=== PATIENT | female | born 1940 | race Caucasian/White ===

== ENCOUNTER → 2018-01-20 15:13 | Outpatient (CLI) | payer MEDICARE, SELFPAY ==
[2018-01-20 16:28] LABS: Erythrocyte Sedimentation Rate 65 MM/HR (0-20)
== END ==
PROVIDERS: PCP Family Medicine; Visit Provider Ophthalmology
DX: H53.8 Other visual disturbances (principal)
CPT/HCPCS: 36415; 85651; 86140

== ENCOUNTER 2021-02-07 08:53 | Outpatient (CLI) | payer MEDICARE, SELFPAY ==
[2021-02-07] VITALS (8 sets, daily range): BP systolic 143–184; BP diastolic 60–84; PULSE 62–68; RESP 9–17; TEMP 37.7; O2SAT 92–96
--- NOTE | 2021-02-07 08:54 | DI.RAD.S_ITS ---
PROCEDURE: PAIN C/T INTERLAMINAR INJECT INDICATIONS: SPONDYLOSIS COMPARISON: Outside Facility, RG, MRI C-SPINE W/O CONTRAST, 10/21/2020, 11:01. FINDINGS: Fluoroscopic spot filming was performed to verify placement of spinal needle at the left C6-C7 level as labeled on the films. Appropriate location of the needle tip was confirmed by injection of iodinated contrast. IMPRESSION: 1. Fluoroscopy provided for epidural injection at C6-C7. Dictated by: Govind Sherwood M.D. on 02/07/2021 at 13:48 Approved by: Govind Sherwood M.D. on 02/07/2021 at 13:51
[2021-02-07] MEDS: IOPAMIDOL 15 ML VIAL 3 ML INJ (10:25)
[2021-02-07] MEDS: BUPIVACAINE 0.25% (PF) VIAL 2 ML INJ (10:25)
[2021-02-07] MEDS: DEXAMETHASONE 10 MG/ML VIAL 30 MG INJ (10:25)
[2021-02-07] MEDS: fentaNYL 100 MCG/2 ML INJ 50 MCG IV (10:25)
[2021-02-07] MEDS: MIDAZOLAM 5 MG/5 ML VIAL IV (10:25)
--- NOTE | 2021-02-07 10:45 | P.PCN_ITS ---
Date/Time/Diagnoses Date of procedure: 02/07/21 Time of procedure: 10:45 Pre-procedure diagnosis: 1. CERVICAL STENOSIS, 2. CERVICAL HNP WITH UPPER EXTREMITY RADICULAR FEATURES Post-procedure diagnosis: same Procedure Notes Procedure: 1. FLUORSCOPICALLY GUIDED CONTRAST CONTROLLED INTERLAMINAR EPIDURAL STEROID INJECTION - C6/7 TL COURTNEY Indications: Nadine is referred by Dr. Mcbride for treatment of Cervical HNP with Upper Extremity Paresthesias. Physician: Julius Huggins Total Fluoroscopy time (seconds): 21 Total sedation minutes: 12 Complications: none Procedure in detail & Post-procedure care: FINDINGS Cervical Stenosis due to disc deterioration and nerve root irritation and nerve root irritation DESCRIPTION OF PROCEDURE Fluoroscopically guided, contrast-controlled C6/7 translaminar epidural steroid injection with conscious sedation. Following review of allergy and review of potential side effects and complications, including, but not necessarily limited to, infection, allergic reaction, local tissue breakdown, temporary as well as permanent nerve injury, stroke, paralysis, and possible , the patient indicated that patient understood and agreed to proceed. An informed consent document was signed by the patient, witnessed by a nurse, and placed in the patient's chart. Additionally, other treatment options including modalities, medications, and physical therapy were reviewed with the patient. After review of previous anaesthesic history and IV conscious sedation the patient was deemed safe to proceed with today?s procedure with IV conscious sedation as ASA class II designation. Safety time-out was performed to confirm patient ID, procedure to be performed and site of procedure. IV sedation was accomplished with a combination of 2mg of Versed and 50mcg of Fentanyl administered by the RN after DO order, titrated to patient comfort during the course of the procedure while the patient remained responsive to all verbal commands. In the prone position, following sterile prep and drape of the cervical region, the C6/7 translaminar space was identified fluoroscopically. The skin was anesthetized via a 25-gauge 1.5-inch needle with 1% lidocaine solution. At this point, a 25-gauge, 2.5-inch short bevel spinal needle was atraumatically introduced and advanced under fluoroscopic guidance into epidural space at the C6/7 translaminar space. Depth was confirmed on lateral view. Radiological data, including multiple fluoroscopic views of the cervical spine, reveal a spinal needle at the C6/7 translaminar space. Lateral views then show placement of the needle in the epidural space. Subsequent views show contrast material flowing superiorly and inferiorly in the epidural space. DSA fluoroscopy with live contrast injection, once again, confirmed no vascular or intrathecal uptake. At this point, using loss of resistance technique with saline and air, the epidural space was entered. Following negative aspiration, injection of appro ximately 1.5 cc of [id number] with live fluoroscopy in the AP view confirmed epidural flow in the epidural space without vascular or intrathecal uptake observed. Subsequently, a test dose of 1 cc of 1% lidocaine solution was injected and patient was observed for two minutes without signs or symptoms of complications, including abdominal pain, shortness of breath, bilateral upper or lower extremity weakness, nausea and vomiting, prior to steroid injection. At this point, 3cc or 30mg of dexamethasone was then injected without incident. The patient tolerated the procedure well without signs or symptoms of complications prior to being transferred to the recovery area for further monitoring, The patient was then transferred to the recovery area where they were observed for an appropriate period of time after the injection. The patient reported a VAS score of 6 prior to the procedure and a post-procedure VAS of 0. POST OP INSTRUCTIONS The patient was provided a Pain Log to continue to record their response to the target-specific procedure prior to follow-up visit with the referring provider. Additionally, specific post-injection care instructions and a contact number to our office were provided if concerns arise regarding possible complications associated with the procedure are suspected.
== END 2021-02-07 11:08 | disposition home or self-care (01) ==
LOC: RAD 08:54
PROVIDERS: PCP Family Medicine; Referring Provider Physical Medicine & Rehabilitation; Visit Provider Physical Medicine & Rehabilitation
DX: M48.02 Spinal stenosis, cervical region; M50.123 Cervical disc disorder at C6-C7 level with radiculopathy
CPT/HCPCS: 62321; 99152; J1100; J2250; J3010

== ENCOUNTER 2021-11-14 11:04 | Outpatient (CLI) | payer MEDICARE, SELFPAY | END 2021-11-18 12:37 | disposition home or self-care (01) | LOC: PHYS 11:06 | PROVIDERS: Family Provider Family Medicine; PCP Family Medicine; Referring Provider Physical Medicine & Rehabilitation; Visit Provider Physical Medicine & Rehabilitation | DX: M50.223 Other cervical disc displacement at C6-C7 level (principal); G56.20 Lesion of ulnar nerve, unspecified upper limb | CPT/HCPCS: 95886; 95911 ==